=== PATIENT | female | born 1995 | race Caucasian/White ===

== ENCOUNTER → 2018-07-10 | Outpatient (CLI) | payer BC ==
--- NOTE | 2018-07-10 16:42 | RAD ---
Transabdominal and transvaginal sonography of the pelvis Clinical indications: Intermittent pelvic pain since March 2018. FINDINGS: Uterus is retroverted. The longitudinal AP and transverse dimensions are 7.9 cm and 3.4 cm and 5 cm respectively. The endometrial canal is poorly visualized. Therefore transvaginal sonography will be performed. There is a cyst of the right ovary. Color Doppler flow is seen within the right ovary. Left ovary appears normal. Transvaginal sonography: The endometrial canal is hyperechoic and thickened measuring 12 mm. Hyperemia is seen within the endometrium. No uterine mass or fibroid is seen otherwise. The right ovarian cyst measures 3.1 cm by transvaginal exam and most likely represents a complex corpus luteum. The left ovary is normal and color Doppler flow is seen within both ovaries. No adnexal mass is seen. Small amount of free fluid is seen within the pelvis. IMPRESSION: Thickened endometrium which is hyperemic most likely representing the secretory phase of the menstrual cycle. Recommend a follow-up transvaginal sonogram in 3-4 months after completion of menstruation. 3.1 cm collapsing corpus luteum cyst of the right ovary. Small amount of free fluid. Electronically signed by: Sergey Collins MD (07/10/2018 4:39 PM) [id number]
== END | disposition home or self-care (01) ==
LOC: US 09:43
PROVIDERS: ATTEND Family Medicine
DX: N83.11 Corpus luteum cyst of right ovary (principal); N85.4 Malposition of uterus
CPT/HCPCS: 76830; 76856